=== PATIENT | male | born 1985 | race African-American/Black ===

== ENCOUNTER 2017-09-08 09:07 | Emergency (ER) | payer BC, SELFPAY ==
--- NOTE | 2017-09-08 10:36 | EDPHYS ---
Physician Documentation [facility] Name: Marline Xiao Age: 32 yrs Sex: Male : 1985 Arrival Date: 09/08/2017 Time: 09:11 Bed 18 Private MD: None, None ED Physician Usman Souza HPI: 09/08 10:25 This 32 yrs old Black Male presents to ER via Wheelchair with complaints of Hernia. cp 10:25 The patient presents with hernia right groin. cp 10:25 Onset: The symptoms/episode began/occurred last week. Associated signs and symptoms: cp Pertinent positives: burning, Pertinent negatives: abdominal pain, diarrhea, dysuria, fever. Patient reports he saw physician and was told he has a hernia. Historical: - Allergies: 09:28 NKA; iw - Home Meds: :28 ibuprofen 800 mg Oral tab [Active]; iw - PMHx: 09:28 Asthma; Hernia; iw - PSHx: 09:28 Knee surgery; iw - Immunization history:: Adult Immunizations not up to date. - Social history:: Smoking status: Patient uses tobacco products, smokes one pack cigarettes per day. ROS: 10:26 Eyes: Negative for injury, pain, redness, and discharge. cp 10:26 Constitutional: Negative for body aches, chills, fever, poor PO intake. 10:26 Cardiovascular: Negative for chest pain, edema, palpitations. 10:26 Respiratory: Negative for cough, shortness of breath, wheezing. 10:26 Abdomen/GI: Negative for abdominal pain, nausea, vomiting, and diarrhea, black/tarry stool, rectal bleeding. 10:26 Back: Negative for pain at rest, pain with movement. 10:26 : Positive for right inguinal hernia, Negative for urinary symptoms, penile pain, testicular pain 10:26 Skin: Negative for cellulitis, rash. 10:26 Neuro: Negative for altered mental status, headache, weakness. 10:26 All other systems are negative. Exam: 10:27 Head/Face: Normocephalic, atraumatic. cp 10:27 Constitutional: The patient appears in no acute distress, alert, awake, comfortable, non-toxic, well developed, well nourished. 10:27 Eyes: Periorbital structures: appear normal, Conjunctiva: normal, no exudate, no injection, Sclera: no appreciated abnormality, Lids and lashes: appear normal. 10:27 ENT: External ear(s): are unremarkable, Nose: is normal, Mouth: is normal, Posterior pharynx: is normal, airway is patent, no erythema, no exudate. 10:27 Chest/axilla: Inspection: normal. 10:27 Cardiovascular: Rate: normal. 10:27 Respiratory: the patient does not display signs of respiratory distress, Respirations: normal, no use of accessory muscles, no retractions, no splinting, no tachypnea. 10:27 Abdomen/GI: Inspection: abdomen appears normal, Bowel sounds: active, all quadrants, Palpation: abdomen is soft and non-tender, in all quadrants, Hernia: noted in the right inguinal area, incarceration, is not appreciated, tenderness, is not appreciated. 10:27 Skin: cellulitis, is not appreciated, no rash present. Vital Signs: 09:28 BP 133 / 95; Pulse 70; Resp 16; Temp 98.2; Pulse Ox 100% on R/A; Weight 79.38 kg; iw Height 5 ft. 6 in. (167.64 cm); Pain 02/16; 09:28 Body Mass Index 28.25 (79.38 kg, 167.64 cm) iw MDM: 10:15 Patient medically screened. cp 10:30 Differential diagnosis: appendicitis, UTI, prostatitis, urethritis. cp 10:35 Data reviewed: vital signs, nurses notes, and as a result, I will discharge patient. cp 10:35 Counseling: I had a detailed discussion with the patient and/or guardian regarding: the cp historical points, exam findings, and any diagnostic results supporting the discharge/admit diagnosis, the need for outpatient follow up, a general surgeon, to return to the emergency department if symptoms worsen or persist or if there are any questions or concerns that arise at home. 10:35 ED course: VSS. Exam today reveals no protruding hernia, minimal pain on exam. Will cp discharge to home. Recommend no lifting, bending, stooping and will refer to general surgery. Administered Medications: No medications were administered Disposition: 09/08/17 10:36 Discharged to Home. Impression: Inguinal hernia - Right. - Condition is Stable. - Discharge Instructions: Inguinal Hernia, Adult. - Medication Reconciliation Form, Thank You Letter, Antibiotic Education, Prescription Opioid Use form. - Family Work Release (09/08/17 11:49). em - Follow up: Ray Resendiz MD; When: call office to schedule f/u appointment; Reason: Recheck today's complaints. - Problem is new. - Symptoms are unchanged. Addendum: 09/10/2017 06:35 Co-signature as Attending Physician, Usman Souza MD I agree with the assessment and w a plan of care. Signatures: Freddie Lugo, [employer] em Aida Willson RN RN iw Biju Nair PA PA cp Usman Souza MD MD wa Corrections: (The following items were deleted from the chart) 09/08 10:49 10:36 09/08/2017 10:36 Discharged to Home. Impression: Inguinal hernia - Right. em Condition is Stable. Forms are Medication Reconciliation Form, Thank You Letter, Antibiotic Education, Prescription Opioid Use. Follow up: Ray Resendiz; When: call office to schedule f/u appointment; Reason: Recheck today's complaints. Problem is new. Symptoms are unchanged. cp
--- NOTE | 2017-09-08 10:36 | ER ---
Nurse's Notes [facility] Name: Marline Xiao Age: 32 yrs Sex: Male : 1985 Arrival Date: 09/08/2017 Time: 09:11 Bed 18 Private MD: None, None Diagnosis: Inguinal hernia-Right Presentation: 09/08 09:26 Presenting complaint: Patient states: has had pain to right groin since last , iw was told he has hernia, pain and swelling has increased. Transition of care: patient was not received from another setting of care. Onset of symptoms was September 02, 2017. Initial Sepsis Screen: Does the patient meet any 2 criteria? No. Patient's initial sepsis screen is negative. Does the patient have a suspected source of infection? No. Patient's initial sepsis screen is negative. Care prior to arrival: None. 09:26 Method Of Arrival: Wheelchair iw 09:26 Acuity: KURTIS 3 iw Triage Assessment: 10:22 General: Appears in no apparent distress. uncomfortable, Behavior is cooperative, em anxious. Pain: Complains of pain in right inguinal area. Historical: - Allergies: :28 NKA; iw - Home Meds: :28 ibuprofen 800 mg Oral tab [Active]; iw - PMHx: :28 Asthma; Hernia; iw - PSHx: :28 Knee surgery; iw - Immunization history:: Adult Immunizations not up to date. - Social history:: Smoking status: Patient uses tobacco products, smokes one pack cigarettes per day. Screenin:22 Abuse screen: Denies threats or abuse. Nutritional screening: No deficits noted. em Tuberculosis screening: No symptoms or risk factors identified. Fall Risk None identified. Assessment: 10:03 General: Appears in no apparent distress. uncomfortable, Behavior is calm, cooperative. em Pain: Complains of pain in right inguinal area Pain currently is 10 out of 10 on a pain scale. Neuro: Level of Consciousness is awake, alert, obeys commands, Oriented to person, place, time, situation. Cardiovascular: Capillary refill < 3 seconds Patient's skin is warm and dry. Respiratory: Airway is patent Respiratory effort is even, unlabored, Respiratory pattern is regular, symmetrical. GI: Abdomen is flat. : No signs and/or symptoms were reported regarding the genitourinary system. EENT: No signs and/or symptoms were reported regarding the EENT system. Derm: Skin is intact, Skin is pink, warm \T\ dry. Musculoskeletal: Range of motion: intact in all extremities. 10:45 Reassessment: Patient appears in no apparent distress at this time. I agree with the iw assessment above by Freddie Lugo LVN. Vital Signs: 09:28 BP 133 / 95; Pulse 70; Resp 16; Temp 98.2; Pulse Ox 100% on R/A; Weight 79.38 kg; iw Height 5 ft. 6 in. (167.64 cm); Pain 02/16; 09:28 Body Mass Index 28.25 (79.38 kg, 167.64 cm) iw ED Course: 09:11 Patient arrived in ED. mr 09:11 None, None is Private Physician. mr 09:27 Triage completed. iw 09:28 Arm band placed on. iw 10:14 Biju Nair PA is PHCP. cp 10:14 Usman Souza MD is Attending Physician. cp 10:16 Freddie Lugo LVN is Primary Nurse. em 10:22 Patient has correct armband on for positive identification. Placed in gown. Bed in low em position. Call light in reach. Side rails up X2. Adult w/ patient. 10:34 Ray Resendiz MD is Referral Physician. cp 10:47 No provider procedures requiring assistance completed. Patient did not have IV access em during this emergency room visit. Administered Medications: No medications were administered Outcome: 10:36 Discharge ordered by MD. cp 10:49 Discharged to home ambulatory. em 10:49 Condition: good 10:49 Discharge instructions given to patient, Instructed on discharge instructions, Demonstrated understanding of instructions, follow-up care. 10:49 Patient left the ED. em Signatures: Cain Aissatou yap Freddie Lugo LVN LVN em Aida Willson RN RN iw Biju Nair PA PA cp Corrections: (The following items were deleted from the chart) 19:33 10:50 Reassessment: Patient appears in no apparent distress at this time. I agree with iw the assessment above by Freddie Lugo LVN iw
== END 2017-09-08 10:49 | disposition home or self-care (01) ==
LOC: ER 09:07
DX: K40.90 Unilateral inguinal hernia, without obstruction or gangrene, not specified as recurrent (principal); F17.210 Nicotine dependence, cigarettes, uncomplicated
CPT/HCPCS: 99281